=== PATIENT | female | born 1950 | race Caucasian/White ===

== ENCOUNTER 2016-12-22 10:23 | Emergency (ER) | payer MEDICAID ==
[~2016-12-22] VITALS: Ht 160 cm; Wt 91.6 kg
[2016-12-22 10:30] VITALS: BP 114/80; PULSE 80; RESP 18; TEMP 97.2; O2SAT 96
[2016-12-22 12:30] VITALS: BP 114/80; PULSE 80; RESP 18; TEMP 97.2; O2SAT 96
== END 2016-12-22 12:30 | disposition home or self-care (01) ==
LOC: SED 10:23
DX: S93.401A Sprain of unspecified ligament of right ankle, initial encounter (principal); X58.XXXA Exposure to other specified factors, initial encounter; Y93.89 Activity, other specified; Y92.89 Other specified places as the place of occurrence of the external cause; Y99.8 Other external cause status; Z85.3 Personal history of malignant neoplasm of breast; Z88.0 Allergy status to penicillin; Z88.2 Allergy status to sulfonamides
CPT/HCPCS: 99284

== ENCOUNTER 2019-04-14 10:19 | Outpatient (CLI) | payer OTHER, MEDICAID ==
[2019-04-14 11:50] LABS: CALCIUM 8.6 mg/dL (8.4-11.0); CREATININE 0.94 mg/dL (0.55-1.30); POTASSIUM 3.6 mmol/L (3.5-5.1); TOTAL BILIRUBIN 0.4 mg/dL (0.0-1.0)
[2019-04-14 11:51] LABS: THYROID STIMULATING HORMONE 2.11 uIu/mL (0.36-3.74)
== END 2019-04-14 21:14 | disposition home or self-care (01) ==
LOC: SCA 10:19
PROVIDERS: ATTEND Internal Medicine Cardiovascular Disease
DX: E78.5 Hyperlipidemia, unspecified (principal); I10 Essential (primary) hypertension
CPT/HCPCS: 36415; 80053; 80061; 84443-TC; 93306